=== PATIENT | male | born 1955 | race Caucasian/White ===

== ENCOUNTER 2017-08-02 21:43 | Inpatient (IN) | payer BC ==
[2017-08-02] MEDS ORDERED: LORAZEPAM 2 MG INJ ×2 (21:53→22:00)
[2017-08-02] MEDS: LEVETIRACETAM 1000 MG (PMX) 100 ML IVPB (21:55)
[2017-08-02] MEDS: LORAZEPAM 2 MG INJ IV ×3 (22:11→23:03)
[2017-08-02] MEDS: SOD CHLORIDE 0.9% 1,000 ML IV (22:18)
[2017-08-02 22:22] LABS: ADD MAN DIFF? NO
[2017-08-02 22:24] LABS: BASOPHIL # 0.1 10^3/ul (0.0-0.1); BASOPHILS % 0.7 % (0.0-2.0); EOSINOPHILS # 0.5 10^3/ul (0.0-0.5); EOSINOPHILS % 3.5 % (0.0-7.0); HEMATOCRIT 40.4 % (42.0-52.0); HEMOGLOBIN 13.9 g/dl (14.0-18.0); LYMPHOCYTES # 2.7 10^3/ul (0.8-2.9); LYMPHOCYTES % 17.8 % (15.0-51.0); MEAN CORPUSCULAR HEMOGLOBIN 29.4 pg (29.0-33.0); MEAN CORPUSCULAR HGB CONC 34.4 g/dl (32.0-37.0); MEAN CORPUSCULAR VOLUME 85.4 fl (82.0-101.0); MEAN PLATELET VOLUME 10.5 fl (7.4-10.4); MONOCYTE # 1.3 10^3/ul (0.3-0.9); MONOCYTES % 8.7 % (0.0-11.0); NEUTROPHIL # 10.3 10^3/ul (1.6-7.5); PLATELET COUNT 268 10^3/UL (140-415); RED BLOOD COUNT 4.73 10^6/ul (4.70-6.10); RED CELL DISTRIBUTION WIDTH 15.6 % (11.5-14.5)
[2017-08-02 22:44] LABS: INR 1.06; PARTIAL THROMBOPLASTIN TIME 25.8 Sec (25.0-35.0); PROTIME 13.9 Sec (11.9-14.9); PT RATIO 1.1
[2017-08-02 22:58] LABS: TROPONIN-I 0.013 ng/ml (0.00-0.12)
[2017-08-02 23:05] LABS: ANION GAP 22 (8-16); BLOOD UREA NITROGEN 7 mg/dl (7-20); CARBON DIOXIDE 19 mmol/L (21-31); CHLORIDE 98 mmol/L (97-110); GLUCOSE 138 mg/dl (70-220); SODIUM 135 mmol/L (135-144)
[2017-08-02 23:07] LABS: ETHANOL < 10.0 mg/dl
[2017-08-03 00:24] LABS: AMPHETAMINE/METHAMPHETAMINE NEGATIVE (NEGATIVE); BARBITURATES NEGATIVE (NEGATIVE); BENZODIAZEPINES NEGATIVE (NEGATIVE); CANNABINOIDS NEGATIVE (NEGATIVE); COCAINE NEGATIVE (NEGATIVE); OPIATES NEGATIVE (NEGATIVE)
[2017-08-03 00:25] LABS: ADD UMIC YES; UR ASCORBIC ACID NEGATIVE (NEGATIVE); UR BILIRUBIN (Dip) NEGATIVE (NEGATIVE); UR BLOOD (Dip) 3+ mg/dL (NEGATIVE); UR CLARITY CLEAR (CLEAR); UR COLOR STRAW (YELLOW); UR GLUCOSE (Dip) NEGATIVE (NEGATIVE); UR KETONES (Dip) NEGATIVE (NEGATIVE); UR LEUKOCYTE ESTERASE (Dip) NEGATIVE Leu/ul (NEGATIVE); UR NITRITE (Dip) NEGATIVE (NEGATIVE); UR RBC > 182 /HPF (0-5); UR SPECIFIC GRAVITY (Dip) 1.006 (1.003-1.030); UR TOTAL PROTEIN (Dip) NEGATIVE (NEGATIVE); UR UROBILINOGEN (Dip) NEGATIVE (NEGATIVE); UR WBC 1 /HPF (0-5)
[2017-08-03] MEDS: SODIUM CHLORIDE 0.9% 1L BAG IV* (03:00)
[2017-08-03 03:06] LABS: LACTIC ACID 1.4 mmol/L (0.5-2.0)
[2017-08-03] MEDS ORDERED: ACETAMINOPHEN 325 MG TAB PO (04:30)
[2017-08-03] MEDS ORDERED: LORAZEPAM 2 MG INJ IV (04:30)
[2017-08-03] MEDS ORDERED: ONDANSETRON 4 MG INJ IV (04:30)
[2017-08-03] MEDS: PANTOPRAZOLE (EC) 40 MG TAB PO (05:35)
[2017-08-03] MEDS: CEFEPIME 2GM/50 ML (PMX) 50 ML IVPB (05:35)
[2017-08-03] MEDS: LEVETIRACETAM 500 MG (PMX) 100 ML IVPB ×2 (08:10→20:45)
[2017-08-03] MEDS: CHLORDIAZEPOXIDE 25 MG CAP PO ×4 (09:00→21:17)
[2017-08-03] MEDS: MULTIVITAMINS 10 ML, THIAMINE 100 MG, FOLIC ACID 1 MG in SOD CHLORIDE 0.9% 1,000 ML IVPB (09:19)
[2017-08-03 13:23] LABS: LACTIC ACID 0.8 mmol/L (0.5-2.0)
[2017-08-03] MEDS ORDERED: morphine 2 MG INJ IV (14:30)
[2017-08-03] MEDS: CEFTRIAXONE 1 GM/50 ML (PMX) 50 ML IVPB (14:57)
[2017-08-03] MEDS: PIPER-TAZO 3.375 GM IV (PMX) 100 ML IVPB ×2 (17:17→23:24)
[2017-08-04 06:13] LABS: WHITE BLOOD COUNT 11.2 10^3/ul (4.8-10.8)
[2017-08-04 06:13] LABS: ABNORMAL IP MESSAGE 1; HEMATOCRIT 41.9 % (42.0-52.0); HEMOGLOBIN 14.1 g/dl (14.0-18.0); MEAN CORPUSCULAR HEMOGLOBIN 29.1 pg (29.0-33.0); MEAN CORPUSCULAR HGB CONC 33.7 g/dl (32.0-37.0); MEAN CORPUSCULAR VOLUME 86.6 fl (82.0-101.0); MEAN PLATELET VOLUME 10.8 fl (7.4-10.4); PLATELET COUNT 260 10^3/UL (140-415); POSITIVE DIFF @See below; RED BLOOD COUNT 4.84 10^6/ul (4.70-6.10); RED CELL DISTRIBUTION WIDTH 15.9 % (11.5-14.5)
[2017-08-04] MEDS: PANTOPRAZOLE (EC) 40 MG TAB PO (06:25)
[2017-08-04] MEDS: PIPER-TAZO 3.375 GM IV (PMX) 100 ML IVPB ×3 (06:25→17:58)
[2017-08-04 06:38] LABS: ADD MAN DIFF? YES
[2017-08-04 06:43] LABS: ANION GAP 14 (8-16); BLOOD UREA NITROGEN 6 mg/dl (7-20); CALCIUM 8.9 mg/dl (8.4-10.2); CARBON DIOXIDE 25 mmol/L (21-31); CHLORIDE 106 mmol/L (97-110); CREATININE 0.61 mg/dl (0.61-1.24); GLUCOSE 92 mg/dl (70-220); POTASSIUM 3.5 mmol/L (3.5-5.1); SODIUM 141 mmol/L (135-144)
[2017-08-04 07:15] LABS: ANISOCYTOSIS 1+ (0-0); BAND NEUTROPHILS #M 0.4 10^3/ul (0.0-0.6); BAND NEUTROPHILS % (M) 4 % (0-4); EOSINOPHILS % (M) 32 % (0-7); GIANT THROMBO% (M) 1 % (0-0); LYMPHOCYTES #M 2.2 10^3/ul (0.8-2.9); LYMPHOCYTES % (M) 20 % (15-51); MICROCYTOSIS 1+ (0-0); MONOCYTE #M 0.5 10^3/ul (0.3-0.9); MONOCYTES % (M) 5 % (0-11); PLATELET ESTIMATE NORMAL; POLYCHROMASIA 1+ (0-0); REACTIVE LYMPHOCYTES #M 0.1 10^3/ul (0.0-0.0); REACTIVE LYMPHOCYTES% (M) 1 % (0-0); SEG NEUT #M 4.3 10^3/ul (1.6-7.5); SEGMENTED NEUTROPHILS (M) % 38 % (39-77); SMUDGE%M 5 % (0-0)
[2017-08-04] MEDS: LEVETIRACETAM 500 MG (PMX) 100 ML IVPB ×2 (08:46→20:16)
[2017-08-04] MEDS: MULTIVITAMINS 10 ML, THIAMINE 100 MG, FOLIC ACID 1 MG in SOD CHLORIDE 0.9% 1,000 ML IVPB (08:46)
[2017-08-04] MEDS: CHLORDIAZEPOXIDE 25 MG CAP PO ×3 (08:47→20:16)
[2017-08-04] MEDS ORDERED: HYDROCODONE/APAP (5/325) TAB PO (14:00)
[2017-08-05] MEDS: PIPER-TAZO 3.375 GM IV (PMX) 100 ML IVPB ×5 (00:15→23:23)
[2017-08-05] MEDS: PANTOPRAZOLE (EC) 40 MG TAB PO (05:44)
[2017-08-05] MEDS ORDERED: PANTOPRAZOLE (EC) 40 MG TAB PO (06:00)
[2017-08-05 08:19] LABS: ABNORMAL IP MESSAGE 1; HEMOGLOBIN 13.8 g/dl (14.0-18.0); MEAN CORPUSCULAR HEMOGLOBIN 29.7 pg (29.0-33.0); MEAN CORPUSCULAR HGB CONC 34.5 g/dl (32.0-37.0); MEAN CORPUSCULAR VOLUME 86.2 fl (82.0-101.0); MEAN PLATELET VOLUME 10.9 fl (7.4-10.4); PLATELET COUNT 260 10^3/UL (140-415); POSITIVE DIFF @See below; RED BLOOD COUNT 4.64 10^6/ul (4.70-6.10); RED CELL DISTRIBUTION WIDTH 15.9 % (11.5-14.5)
[2017-08-05 08:19] LABS: WHITE BLOOD COUNT 12.7 10^3/ul (4.8-10.8)
[2017-08-05 08:26] LABS: ADD MAN DIFF? YES
[2017-08-05] MEDS: LEVETIRACETAM 500 MG (PMX) 100 ML IVPB ×2 (08:33→20:09)
[2017-08-05] MEDS: CHLORDIAZEPOXIDE 25 MG CAP PO ×3 (08:33→20:09)
[2017-08-05 08:47] LABS: ANION GAP 15 (8-16); BLOOD UREA NITROGEN 8 mg/dl (7-20); CALCIUM 8.7 mg/dl (8.4-10.2); CARBON DIOXIDE 24 mmol/L (21-31); CHLORIDE 109 mmol/L (97-110); CREATININE 0.67 mg/dl (0.61-1.24); GLUCOSE 108 mg/dl (70-220); POTASSIUM 3.6 mmol/L (3.5-5.1); SODIUM 144 mmol/L (135-144)
[2017-08-05 09:25] LABS: ANISOCYTOSIS 1+ (0-0); BAND NEUTROPHILS #M 0.2 10^3/ul (0.0-0.6); BAND NEUTROPHILS % (M) 2 % (0-4); BASOPHIL #M 0.2 10^3/ul (0.0-0.0); BASOPHILS % (M) 2 % (0-2); EOSINOPHILS % (M) 22 % (0-7); LYMPHOCYTES #M 3.1 10^3/ul (0.8-2.9); LYMPHOCYTES % (M) 25 % (15-51); MICROCYTOSIS 1+ (0-0); MONOCYTE #M 0.7 10^3/ul (0.3-0.9); MONOCYTES % (M) 6 % (0-11); PLATELET ESTIMATE NORMAL; POLYCHROMASIA 3+ (0-0); SEG NEUT #M 5.5 10^3/ul (1.6-7.5); SEGMENTED NEUTROPHILS (M) % 43 % (39-77); SMUDGE%M 6 % (0-0)
[2017-08-05] MEDS: MULTIVITAMINS 10 ML, THIAMINE 100 MG, FOLIC ACID 1 MG in SOD CHLORIDE 0.9% 1,000 ML IVPB (11:34)
[2017-08-06 06:15] LABS: ABNORMAL IP MESSAGE 1; HEMATOCRIT 41.4 % (42.0-52.0); HEMOGLOBIN 13.8 g/dl (14.0-18.0); MEAN CORPUSCULAR HEMOGLOBIN 29.1 pg (29.0-33.0); MEAN CORPUSCULAR HGB CONC 33.3 g/dl (32.0-37.0); MEAN CORPUSCULAR VOLUME 87.2 fl (82.0-101.0); MEAN PLATELET VOLUME 10.7 fl (7.4-10.4); PLATELET COUNT 269 10^3/UL (140-415); POSITIVE DIFF @See below; RED BLOOD COUNT 4.75 10^6/ul (4.70-6.10); RED CELL DISTRIBUTION WIDTH 15.8 % (11.5-14.5)
[2017-08-06 06:15] LABS: WHITE BLOOD COUNT 11.2 10^3/ul (4.8-10.8)
[2017-08-06] MEDS: PANTOPRAZOLE (EC) 40 MG TAB PO (06:15)
[2017-08-06] MEDS: PIPER-TAZO 3.375 GM IV (PMX) 100 ML IVPB ×3 (06:15→17:59)
[2017-08-06 06:30] LABS: ANION GAP 13 (8-16); BLOOD UREA NITROGEN 7 mg/dl (7-20); CARBON DIOXIDE 27 mmol/L (21-31); CHLORIDE 106 mmol/L (97-110); CREATININE 0.61 mg/dl (0.61-1.24); GLUCOSE 111 mg/dl (70-220); POTASSIUM 3.8 mmol/L (3.5-5.1); SODIUM 142 mmol/L (135-144)
[2017-08-06 07:00] LABS: ADD MAN DIFF? YES
[2017-08-06] MEDS: CHLORDIAZEPOXIDE 25 MG CAP PO ×3 (09:22→20:54)
[2017-08-06] MEDS: LEVETIRACETAM 500 MG (PMX) 100 ML IVPB ×2 (09:22→20:54)
[2017-08-06] MEDS: MULTIVITAMINS 10 ML, THIAMINE 100 MG, FOLIC ACID 1 MG in SOD CHLORIDE 0.9% 1,000 ML IVPB (09:22)
[2017-08-06 10:34] LABS: BAND NEUTROPHILS #M 0.1 10^3/ul (0.0-0.6); BAND NEUTROPHILS % (M) 1 % (0-4); BASOPHIL #M 0.2 10^3/ul (0.0-0.0); BASOPHILS % (M) 2 % (0-2); EOSINOPHILS % (M) 32 % (0-7); ERYTHROBLAST% (NRBC) (M) 1 % (0-0); GIANT THROMBO% (M) 1 % (0-0); LYMPHOCYTES % (M) 36 % (15-51); MONOCYTE #M 0.5 10^3/ul (0.3-0.9); MONOCYTES % (M) 5 % (0-11); PLATELET ESTIMATE NORMAL; SEG NEUT #M 2.7 10^3/ul (1.6-7.5); SEGMENTED NEUTROPHILS (M) % 24 % (39-77); SMUDGE%M 26 % (0-0)
[2017-08-07] MEDS: PIPER-TAZO 3.375 GM IV (PMX) 100 ML IVPB ×4 (00:12→18:16)
[2017-08-07] MEDS: PANTOPRAZOLE (EC) 40 MG TAB PO (05:53)
[2017-08-07 06:46] LABS: ABNORMAL IP MESSAGE 1; HEMATOCRIT 42.3 % (42.0-52.0); HEMOGLOBIN 14.1 g/dl (14.0-18.0); MEAN CORPUSCULAR HGB CONC 33.3 g/dl (32.0-37.0); MEAN PLATELET VOLUME 10.7 fl (7.4-10.4); PLATELET COUNT 282 10^3/UL (140-415); POSITIVE DIFF @See below; RED BLOOD COUNT 4.86 10^6/ul (4.70-6.10)
[2017-08-07 06:46] LABS: WHITE BLOOD COUNT 11.2 10^3/ul (4.8-10.8)
[2017-08-07 07:14] LABS: ANION GAP 15 (8-16); BLOOD UREA NITROGEN 6 mg/dl (7-20); CARBON DIOXIDE 26 mmol/L (21-31); CHLORIDE 106 mmol/L (97-110); CREATININE 0.57 mg/dl (0.61-1.24); GLUCOSE 109 mg/dl (70-220); POTASSIUM 3.9 mmol/L (3.5-5.1); SODIUM 143 mmol/L (135-144)
[2017-08-07 07:36] LABS: ADD MAN DIFF? YES
[2017-08-07] MEDS: LEVETIRACETAM 500 MG (PMX) 100 ML IVPB ×2 (08:23→21:24)
[2017-08-07] MEDS: CHLORDIAZEPOXIDE 25 MG CAP PO ×3 (08:23→21:24)
[2017-08-07] MEDS: MULTIVITAMINS 10 ML, THIAMINE 100 MG, FOLIC ACID 1 MG in SOD CHLORIDE 0.9% 1,000 ML IVPB (08:24)
[2017-08-07 11:32] LABS: BASOPHIL #M 0.1 10^3/ul (0.0-0.0); BASOPHILS % (M) 1 % (0-2); EOSINOPHILS % (M) 31 % (0-7); GIANT THROMBO% (M) 2 % (0-0); LYMPHOCYTES #M 1.9 10^3/ul (0.8-2.9); LYMPHOCYTES % (M) 17 % (15-51); MONOCYTE #M 0.5 10^3/ul (0.3-0.9); MONOCYTES % (M) 5 % (0-11); PLATELET ESTIMATE NORMAL; SEGMENTED NEUTROPHILS (M) % 46 % (39-77); SMUDGE%M 9 % (0-0)
[2017-08-08] MEDS: PIPER-TAZO 3.375 GM IV (PMX) 100 ML IVPB ×4 (00:31→19:07)
[2017-08-08] MEDS: PANTOPRAZOLE (EC) 40 MG TAB PO (05:14)
[2017-08-08 08:43] LABS: ABNORMAL IP MESSAGE 1; HEMATOCRIT 43.5 % (42.0-52.0); HEMOGLOBIN 14.2 g/dl (14.0-18.0); MEAN CORPUSCULAR HEMOGLOBIN 28.6 pg (29.0-33.0); MEAN CORPUSCULAR HGB CONC 32.6 g/dl (32.0-37.0); MEAN CORPUSCULAR VOLUME 87.7 fl (82.0-101.0); MEAN PLATELET VOLUME 10.9 fl (7.4-10.4); PLATELET COUNT 275 10^3/UL (140-415); POSITIVE DIFF @See below; RED BLOOD COUNT 4.96 10^6/ul (4.70-6.10); RED CELL DISTRIBUTION WIDTH 15.9 % (11.5-14.5)
[2017-08-08 08:43] LABS: WHITE BLOOD COUNT 11.3 10^3/ul (4.8-10.8)
[2017-08-08 08:47] LABS: ADD MAN DIFF? YES
[2017-08-08 09:02] LABS: ANION GAP 16 (8-16); BLOOD UREA NITROGEN 8 mg/dl (7-20); CALCIUM 9.3 mg/dl (8.4-10.2); CARBON DIOXIDE 27 mmol/L (21-31); CHLORIDE 104 mmol/L (97-110); CREATININE 0.69 mg/dl (0.61-1.24); GLUCOSE 107 mg/dl (70-220); POTASSIUM 3.9 mmol/L (3.5-5.1); SODIUM 143 mmol/L (135-144)
[2017-08-08] MEDS: MULTIVITAMINS 10 ML, THIAMINE 100 MG, FOLIC ACID 1 MG in SOD CHLORIDE 0.9% 1,000 ML IVPB (09:19)
[2017-08-08] MEDS: CHLORDIAZEPOXIDE 25 MG CAP PO ×3 (09:19→20:38)
[2017-08-08 09:44] LABS: BAND NEUTROPHILS #M 0.1 10^3/ul (0.0-0.6); BAND NEUTROPHILS % (M) 1 % (0-4); BASOPHIL #M 0.3 10^3/ul (0.0-0.0); BASOPHILS % (M) 3 % (0-2); EOSINOPHILS % (M) 37 % (0-7); GIANT THROMBO% (M) 1 % (0-0); LYMPHOCYTES % (M) 9 % (15-51); MONOCYTES % (M) 9 % (0-11); MYELOCYTES #M 0.1 10^3/ul (0.0-0.0); MYELOCYTES % (M) 1 % (0-0); PLATELET ESTIMATE NORMAL; POLYCHROMASIA 2+ (0-0); REACTIVE LYMPHOCYTES #M 0.9 10^3/ul (0.0-0.0); REACTIVE LYMPHOCYTES% (M) 8 % (0-0); SEG NEUT #M 3.6 10^3/ul (1.6-7.5); SEGMENTED NEUTROPHILS (M) % 32 % (39-77); SMUDGE%M 22 % (0-0)
[2017-08-08] MEDS: LEVETIRACETAM 500 MG (PMX) 100 ML IVPB (10:08)
[2017-08-08] MEDS: LEVETIRACETAM 500 MG TAB PO (20:38)
[2017-08-09] MEDS: PIPER-TAZO 3.375 GM IV (PMX) 100 ML IVPB ×4 (00:38→17:19)
[2017-08-09] MEDS: PANTOPRAZOLE (EC) 40 MG TAB PO (05:52)
[2017-08-09 06:05] LABS: ADD MAN DIFF? NO
[2017-08-09 06:09] LABS: WHITE BLOOD COUNT 12.4 10^3/ul (4.8-10.8)
[2017-08-09 06:09] LABS: ABNORMAL IP MESSAGE 1; BASOPHIL # 0.1 10^3/ul (0.0-0.1); BASOPHILS % 0.8 % (0.0-2.0); EOSINOPHILS # 3.8 10^3/ul (0.0-0.5); EOSINOPHILS % 30.8 % (0.0-7.0); HEMATOCRIT 41.6 % (42.0-52.0); HEMOGLOBIN 13.9 g/dl (14.0-18.0); LYMPHOCYTES # 2.6 10^3/ul (0.8-2.9); LYMPHOCYTES % 20.5 % (15.0-51.0); MEAN CORPUSCULAR HEMOGLOBIN 29.2 pg (29.0-33.0); MEAN CORPUSCULAR HGB CONC 33.4 g/dl (32.0-37.0); MEAN CORPUSCULAR VOLUME 87.4 fl (82.0-101.0); MEAN PLATELET VOLUME 10.5 fl (7.4-10.4); MONOCYTE # 1.3 10^3/ul (0.3-0.9); MONOCYTES % 10.1 % (0.0-11.0); NEUTROPHIL # 4.7 10^3/ul (1.6-7.5); NEUTROPHILS % 37.6 % (39.0-77.0); PLATELET COUNT 271 10^3/UL (140-415); POSITIVE DIFF @See below; RED BLOOD COUNT 4.76 10^6/ul (4.70-6.10); RED CELL DISTRIBUTION WIDTH 15.9 % (11.5-14.5)
[2017-08-09 06:42] LABS: ANION GAP 12 (8-16); BLOOD UREA NITROGEN 9 mg/dl (7-20); CALCIUM 9.2 mg/dl (8.4-10.2); CARBON DIOXIDE 28 mmol/L (21-31); CHLORIDE 107 mmol/L (97-110); CREATININE 0.61 mg/dl (0.61-1.24); GLUCOSE 104 mg/dl (70-220); POTASSIUM 3.9 mmol/L (3.5-5.1); SODIUM 143 mmol/L (135-144)
[2017-08-09] MEDS: THIAMINE 100 MG TAB PO (08:17)
[2017-08-09] MEDS: MULTIVITAMINS THERAPEUTIC TAB PO (08:17)
[2017-08-09] MEDS: FOLIC ACID 1 MG TAB PO (08:17)
[2017-08-09] MEDS: LEVETIRACETAM 500 MG TAB PO ×2 (08:18→20:44)
[2017-08-09] MEDS: CHLORDIAZEPOXIDE 25 MG CAP PO ×2 (08:34→20:45)
[2017-08-09] MEDS ORDERED: MULTIVIT/CA CARB/B CMPLX/FA TAB PO (09:00)
[2017-08-09] MEDS ORDERED: LEVETIRACETAM 500 MG TAB PO (09:00)
[2017-08-10] MEDS: PIPER-TAZO 3.375 GM IV (PMX) 100 ML IVPB ×4 (00:17→18:21)
[2017-08-10] MEDS: PANTOPRAZOLE (EC) 40 MG TAB PO (05:56)
[2017-08-10 05:58] LABS: ADD MAN DIFF? NO
[2017-08-10 06:06] LABS: ABNORMAL IP MESSAGE 1; BASOPHIL # 0.1 10^3/ul (0.0-0.1); BASOPHILS % 0.8 % (0.0-2.0); EOSINOPHILS # 3.7 10^3/ul (0.0-0.5); HEMATOCRIT 41.2 % (42.0-52.0); HEMOGLOBIN 13.6 g/dl (14.0-18.0); LYMPHOCYTES # 2.4 10^3/ul (0.8-2.9); LYMPHOCYTES % 15.9 % (15.0-51.0); MEAN CORPUSCULAR HEMOGLOBIN 28.8 pg (29.0-33.0); MEAN CORPUSCULAR VOLUME 87.1 fl (82.0-101.0); MEAN PLATELET VOLUME 10.4 fl (7.4-10.4); MONOCYTE # 1.6 10^3/ul (0.3-0.9); MONOCYTES % 10.7 % (0.0-11.0); NEUTROPHIL # 7.1 10^3/ul (1.6-7.5); NEUTROPHILS % 47.3 % (39.0-77.0); PLATELET COUNT 265 10^3/UL (140-415); POSITIVE DIFF @See below; RED BLOOD COUNT 4.73 10^6/ul (4.70-6.10); RED CELL DISTRIBUTION WIDTH 15.5 % (11.5-14.5)
[2017-08-10 07:15] LABS: ANION GAP 11 (8-16); BLOOD UREA NITROGEN 10 mg/dl (7-20); CALCIUM 9.3 mg/dl (8.4-10.2); CARBON DIOXIDE 28 mmol/L (21-31); CHLORIDE 105 mmol/L (97-110); CREATININE 0.69 mg/dl (0.61-1.24); GLUCOSE 108 mg/dl (70-220); SODIUM 140 mmol/L (135-144)
[2017-08-10] MEDS: THIAMINE 100 MG TAB PO (08:35)
[2017-08-10] MEDS: FOLIC ACID 1 MG TAB PO (08:36)
[2017-08-10] MEDS: CHLORDIAZEPOXIDE 25 MG CAP PO ×2 (08:36→20:56)
[2017-08-10] MEDS: LEVETIRACETAM 500 MG TAB PO ×2 (08:36→20:56)
[2017-08-10] MEDS: MULTIVITAMINS THERAPEUTIC TAB PO (08:36)
[2017-08-11] MEDS: PIPER-TAZO 3.375 GM IV (PMX) 100 ML IVPB ×3 (01:26→13:31)
[2017-08-11] MEDS: PANTOPRAZOLE (EC) 40 MG TAB PO (05:27)
[2017-08-11 05:39] LABS: ADD MAN DIFF? NO
[2017-08-11 05:43] LABS: WHITE BLOOD COUNT 13.1 10^3/ul (4.8-10.8)
[2017-08-11 05:43] LABS: ABNORMAL IP MESSAGE 1; BASOPHIL # 0.1 10^3/ul (0.0-0.1); BASOPHILS % 0.8 % (0.0-2.0); EOSINOPHILS # 3.3 10^3/ul (0.0-0.5); EOSINOPHILS % 25.2 % (0.0-7.0); HEMATOCRIT 41.7 % (42.0-52.0); LYMPHOCYTES # 2.2 10^3/ul (0.8-2.9); MEAN CORPUSCULAR HEMOGLOBIN 29.4 pg (29.0-33.0); MEAN CORPUSCULAR HGB CONC 33.6 g/dl (32.0-37.0); MEAN CORPUSCULAR VOLUME 87.4 fl (82.0-101.0); MEAN PLATELET VOLUME 10.7 fl (7.4-10.4); MONOCYTE # 1.6 10^3/ul (0.3-0.9); MONOCYTES % 12.2 % (0.0-11.0); NEUTROPHIL # 5.9 10^3/ul (1.6-7.5); NEUTROPHILS % 44.5 % (39.0-77.0); PLATELET COUNT 277 10^3/UL (140-415); POSITIVE DIFF @See below; RED BLOOD COUNT 4.77 10^6/ul (4.70-6.10); RED CELL DISTRIBUTION WIDTH 15.1 % (11.5-14.5)
[2017-08-11 06:01] LABS: ANION GAP 14 (8-16); BLOOD UREA NITROGEN 8 mg/dl (7-20); CALCIUM 9.4 mg/dl (8.4-10.2); CARBON DIOXIDE 27 mmol/L (21-31); CHLORIDE 103 mmol/L (97-110); CREATININE 0.65 mg/dl (0.61-1.24); GLUCOSE 131 mg/dl (70-220); POTASSIUM 3.9 mmol/L (3.5-5.1); SODIUM 140 mmol/L (135-144)
[2017-08-11] MEDS: MULTIVITAMINS THERAPEUTIC TAB PO (09:05)
[2017-08-11] MEDS: LEVETIRACETAM 500 MG TAB PO ×2 (09:05→20:48)
[2017-08-11] MEDS: THIAMINE 100 MG TAB PO (09:05)
[2017-08-11] MEDS: FOLIC ACID 1 MG TAB PO (09:05)
[2017-08-11] MEDS: CHLORDIAZEPOXIDE 25 MG CAP PO ×2 (09:07→20:48)
[2017-08-11] MEDS ORDERED: VANCOMYCIN IV PER PHARMACY XX (19:00)
[2017-08-11] MEDS: VANCOMYCIN 1.25 GM in SOD CHLORIDE 0.9% 250 ML IVPB (20:48)
[2017-08-11] MEDS: DOXYCYCLINE 100 MG TAB PO (20:48)
[2017-08-12 06:14] LABS: ADD MAN DIFF? NO
[2017-08-12] MEDS: PANTOPRAZOLE (EC) 40 MG TAB PO (06:16)
[2017-08-12 06:24] LABS: ABNORMAL IP MESSAGE 1; BASOPHIL # 0.1 10^3/ul (0.0-0.1); BASOPHILS % 0.8 % (0.0-2.0); EOSINOPHILS # 3.4 10^3/ul (0.0-0.5); EOSINOPHILS % 24.4 % (0.0-7.0); HEMATOCRIT 41.3 % (42.0-52.0); HEMOGLOBIN 13.5 g/dl (14.0-18.0); LYMPHOCYTES # 2.4 10^3/ul (0.8-2.9); LYMPHOCYTES % 17.3 % (15.0-51.0); MEAN CORPUSCULAR HEMOGLOBIN 28.8 pg (29.0-33.0); MEAN CORPUSCULAR HGB CONC 32.7 g/dl (32.0-37.0); MEAN CORPUSCULAR VOLUME 88.1 fl (82.0-101.0); MEAN PLATELET VOLUME 10.7 fl (7.4-10.4); MONOCYTES % 14.1 % (0.0-11.0); PLATELET COUNT 266 10^3/UL (140-415); POSITIVE DIFF @See below; RED BLOOD COUNT 4.69 10^6/ul (4.70-6.10); RED CELL DISTRIBUTION WIDTH 15.4 % (11.5-14.5)
[2017-08-12 06:24] LABS: WHITE BLOOD COUNT 13.9 10^3/ul (4.8-10.8)
[2017-08-12 06:45] LABS: ANION GAP 10 (8-16); BLOOD UREA NITROGEN 9 mg/dl (7-20); CALCIUM 9.5 mg/dl (8.4-10.2); CARBON DIOXIDE 31 mmol/L (21-31); CHLORIDE 105 mmol/L (97-110); CREATININE 0.57 mg/dl (0.61-1.24); GLUCOSE 105 mg/dl (70-220); POTASSIUM 3.9 mmol/L (3.5-5.1); SODIUM 142 mmol/L (135-144)
[2017-08-12] MEDS: LEVETIRACETAM 500 MG TAB PO ×2 (09:12→20:48)
[2017-08-12] MEDS: MULTIVITAMINS THERAPEUTIC TAB PO (09:12)
[2017-08-12] MEDS: VANCOMYCIN 1 GM 250 ML IVPB ×2 (09:12→20:49)
[2017-08-12] MEDS: THIAMINE 100 MG TAB PO (09:12)
[2017-08-12] MEDS: DOXYCYCLINE 100 MG TAB PO (09:12)
[2017-08-12] MEDS: FOLIC ACID 1 MG TAB PO (09:12)
[2017-08-12] MEDS: CHLORDIAZEPOXIDE 25 MG CAP PO ×2 (09:19→20:48)
[2017-08-12] MEDS: CEFTRIAXONE 1 GM/50 ML (PMX) 50 ML IVPB (23:13)
[2017-08-13] MEDS: PANTOPRAZOLE (EC) 40 MG TAB PO (05:40)
[2017-08-13 08:32] LABS: ADD MAN DIFF? NO
[2017-08-13 08:36] LABS: WHITE BLOOD COUNT 13.3 10^3/ul (4.8-10.8)
[2017-08-13 08:36] LABS: ABNORMAL IP MESSAGE 1; BASOPHIL # 0.1 10^3/ul (0.0-0.1); BASOPHILS % 0.6 % (0.0-2.0); EOSINOPHILS # 3.4 10^3/ul (0.0-0.5); EOSINOPHILS % 25.8 % (0.0-7.0); HEMATOCRIT 43.5 % (42.0-52.0); HEMOGLOBIN 14.5 g/dl (14.0-18.0); LYMPHOCYTES % 22.2 % (15.0-51.0); MEAN CORPUSCULAR HEMOGLOBIN 28.9 pg (29.0-33.0); MEAN CORPUSCULAR HGB CONC 33.3 g/dl (32.0-37.0); MEAN CORPUSCULAR VOLUME 86.7 fl (82.0-101.0); MEAN PLATELET VOLUME 10.7 fl (7.4-10.4); MONOCYTE # 1.6 10^3/ul (0.3-0.9); MONOCYTES % 12.3 % (0.0-11.0); NEUTROPHIL # 5.2 10^3/ul (1.6-7.5); NEUTROPHILS % 38.7 % (39.0-77.0); PLATELET COUNT 286 10^3/UL (140-415); POSITIVE DIFF @See below; RED BLOOD COUNT 5.02 10^6/ul (4.70-6.10); RED CELL DISTRIBUTION WIDTH 14.8 % (11.5-14.5)
[2017-08-13] MEDS: THIAMINE 100 MG TAB PO (08:37)
[2017-08-13] MEDS: LEVETIRACETAM 500 MG TAB PO ×2 (08:37→20:59)
[2017-08-13] MEDS: DOXYCYCLINE 100 MG TAB PO (08:37)
[2017-08-13] MEDS: CHLORDIAZEPOXIDE 25 MG CAP PO ×2 (08:37→20:59)
[2017-08-13] MEDS: MULTIVITAMINS THERAPEUTIC TAB PO (08:38)
[2017-08-13] MEDS: FOLIC ACID 1 MG TAB PO (08:38)
[2017-08-13 08:57] LABS: ANION GAP 13 (8-16); BLOOD UREA NITROGEN 12 mg/dl (7-20); CALCIUM 9.9 mg/dl (8.4-10.2); CARBON DIOXIDE 31 mmol/L (21-31); CHLORIDE 100 mmol/L (97-110); CREATININE 0.69 mg/dl (0.61-1.24); GLUCOSE 95 mg/dl (70-220); POTASSIUM 3.9 mmol/L (3.5-5.1); SODIUM 140 mmol/L (135-144)
[2017-08-13 09:15] LABS: VANCOMYCIN,TROUGH 5.8 ug/ml (10.0-20.0)
[2017-08-13] MEDS: VANCOMYCIN 1 GM 250 ML IVPB ×2 (09:29→18:11)
[2017-08-13] MEDS: CEFTRIAXONE 1 GM/50 ML (PMX) 50 ML IVPB (20:59)
[2017-08-14] MEDS: PANTOPRAZOLE (EC) 40 MG TAB PO (05:26)
[2017-08-14 06:25] LABS: ADD MAN DIFF? NO
[2017-08-14 06:34] LABS: ABNORMAL IP MESSAGE 1; BASOPHIL # 0.1 10^3/ul (0.0-0.1); BASOPHILS % 0.8 % (0.0-2.0); EOSINOPHILS # 3.5 10^3/ul (0.0-0.5); EOSINOPHILS % 26.9 % (0.0-7.0); HEMATOCRIT 40.3 % (42.0-52.0); HEMOGLOBIN 13.4 g/dl (14.0-18.0); LYMPHOCYTES # 2.8 10^3/ul (0.8-2.9); LYMPHOCYTES % 21.3 % (15.0-51.0); MEAN CORPUSCULAR HEMOGLOBIN 28.5 pg (29.0-33.0); MEAN CORPUSCULAR HGB CONC 33.3 g/dl (32.0-37.0); MEAN CORPUSCULAR VOLUME 85.7 fl (82.0-101.0); MEAN PLATELET VOLUME 10.9 fl (7.4-10.4); MONOCYTE # 1.6 10^3/ul (0.3-0.9); NEUTROPHILS % 38.7 % (39.0-77.0); PLATELET COUNT 277 10^3/UL (140-415); POSITIVE DIFF @See below
[2017-08-14 07:02] LABS: ANION GAP 16 (8-16); BLOOD UREA NITROGEN 11 mg/dl (7-20); CALCIUM 9.4 mg/dl (8.4-10.2); CARBON DIOXIDE 28 mmol/L (21-31); CHLORIDE 100 mmol/L (97-110); CREATININE 0.62 mg/dl (0.61-1.24); GLUCOSE 100 mg/dl (70-220); POTASSIUM 3.9 mmol/L (3.5-5.1); SODIUM 140 mmol/L (135-144)
[2017-08-14] MEDS: FOLIC ACID 1 MG TAB PO (09:27)
[2017-08-14] MEDS: LEVETIRACETAM 500 MG TAB PO ×2 (09:27→20:04)
[2017-08-14] MEDS: MULTIVITAMINS THERAPEUTIC TAB PO (09:28)
[2017-08-14] MEDS: DOXYCYCLINE 100 MG TAB PO (09:28)
[2017-08-14] MEDS: CHLORDIAZEPOXIDE 25 MG CAP PO ×2 (09:28→20:04)
[2017-08-14] MEDS: THIAMINE 100 MG TAB PO (09:28)
[2017-08-14] MEDS: CEFTRIAXONE 1 GM/50 ML (PMX) 50 ML IVPB (20:04)
[2017-08-14] MEDS ORDERED: GUAIFENESIN/DM 5ML CUP PO (22:30)
[2017-08-15] MEDS: PANTOPRAZOLE (EC) 40 MG TAB PO (06:00)
[2017-08-15 06:10] LABS: ADD MAN DIFF? NO
[2017-08-15 06:14] LABS: ABNORMAL IP MESSAGE 1; BASOPHIL # 0.1 10^3/ul (0.0-0.1); EOSINOPHILS # 3.4 10^3/ul (0.0-0.5); EOSINOPHILS % 28.3 % (0.0-7.0); HEMATOCRIT 42.6 % (42.0-52.0); HEMOGLOBIN 14.4 g/dl (14.0-18.0); LYMPHOCYTES # 2.7 10^3/ul (0.8-2.9); LYMPHOCYTES % 22.2 % (15.0-51.0); MEAN CORPUSCULAR HEMOGLOBIN 29.3 pg (29.0-33.0); MEAN CORPUSCULAR HGB CONC 33.8 g/dl (32.0-37.0); MEAN CORPUSCULAR VOLUME 86.8 fl (82.0-101.0); MEAN PLATELET VOLUME 10.5 fl (7.4-10.4); MONOCYTE # 1.2 10^3/ul (0.3-0.9); MONOCYTES % 10.1 % (0.0-11.0); NEUTROPHIL # 4.6 10^3/ul (1.6-7.5); NEUTROPHILS % 38.1 % (39.0-77.0); PLATELET COUNT 291 10^3/UL (140-415); POSITIVE DIFF @See below; RED BLOOD COUNT 4.91 10^6/ul (4.70-6.10); RED CELL DISTRIBUTION WIDTH 14.6 % (11.5-14.5)
[2017-08-15 06:38] LABS: ANION GAP 13 (8-16); BLOOD UREA NITROGEN 11 mg/dl (7-20); CALCIUM 9.8 mg/dl (8.4-10.2); CARBON DIOXIDE 30 mmol/L (21-31); CHLORIDE 104 mmol/L (97-110); CREATININE 0.65 mg/dl (0.61-1.24); GLUCOSE 115 mg/dl (70-220); SODIUM 143 mmol/L (135-144)
[2017-08-15] MEDS: THIAMINE 100 MG TAB PO (09:48)
[2017-08-15] MEDS: MULTIVITAMINS THERAPEUTIC TAB PO (09:48)
[2017-08-15] MEDS: LEVETIRACETAM 500 MG TAB PO ×2 (09:48→20:43)
[2017-08-15] MEDS: FOLIC ACID 1 MG TAB PO (09:48)
[2017-08-15] MEDS: DOXYCYCLINE 100 MG TAB PO (09:48)
[2017-08-15] MEDS: CHLORDIAZEPOXIDE 25 MG CAP PO ×2 (10:01→20:43)
[2017-08-15] MEDS: CEFTRIAXONE 1 GM/50 ML (PMX) 50 ML IVPB (20:43)
[2017-08-16] MEDS: PANTOPRAZOLE (EC) 40 MG TAB PO (06:08)
[2017-08-16 06:14] LABS: ADD MAN DIFF? NO
[2017-08-16 06:18] LABS: ABNORMAL IP MESSAGE 1; BASOPHIL # 0.2 10^3/ul (0.0-0.1); BASOPHILS % 1.2 % (0.0-2.0); EOSINOPHILS # 3.6 10^3/ul (0.0-0.5); EOSINOPHILS % 27.3 % (0.0-7.0); HEMATOCRIT 42.9 % (42.0-52.0); HEMOGLOBIN 14.4 g/dl (14.0-18.0); LYMPHOCYTES # 3.1 10^3/ul (0.8-2.9); LYMPHOCYTES % 23.3 % (15.0-51.0); MEAN CORPUSCULAR HEMOGLOBIN 28.7 pg (29.0-33.0); MEAN CORPUSCULAR HGB CONC 33.6 g/dl (32.0-37.0); MEAN CORPUSCULAR VOLUME 85.5 fl (82.0-101.0); MEAN PLATELET VOLUME 10.8 fl (7.4-10.4); MONOCYTE # 1.3 10^3/ul (0.3-0.9); MONOCYTES % 9.8 % (0.0-11.0); NEUTROPHIL # 5.1 10^3/ul (1.6-7.5); NEUTROPHILS % 38.1 % (39.0-77.0); PLATELET COUNT 293 10^3/UL (140-415); POSITIVE DIFF @See below; RED BLOOD COUNT 5.02 10^6/ul (4.70-6.10); RED CELL DISTRIBUTION WIDTH 14.8 % (11.5-14.5)
[2017-08-16 06:18] LABS: WHITE BLOOD COUNT 13.3 10^3/ul (4.8-10.8)
[2017-08-16 06:39] LABS: ANION GAP 16 (8-16); BLOOD UREA NITROGEN 15 mg/dl (7-20); CALCIUM 9.8 mg/dl (8.4-10.2); CARBON DIOXIDE 27 mmol/L (21-31); CHLORIDE 102 mmol/L (97-110); CREATININE 0.64 mg/dl (0.61-1.24); GLUCOSE 111 mg/dl (70-220); POTASSIUM 3.9 mmol/L (3.5-5.1); SODIUM 141 mmol/L (135-144)
[2017-08-16] MEDS: THIAMINE 100 MG TAB PO (08:11)
[2017-08-16] MEDS: DOXYCYCLINE 100 MG TAB PO (08:11)
[2017-08-16] MEDS: FOLIC ACID 1 MG TAB PO (08:11)
[2017-08-16] MEDS: CHLORDIAZEPOXIDE 25 MG CAP PO ×2 (08:11→20:15)
[2017-08-16] MEDS: LEVETIRACETAM 500 MG TAB PO ×2 (08:11→20:15)
[2017-08-16] MEDS: MULTIVITAMINS THERAPEUTIC TAB PO (08:11)
[2017-08-16] MEDS: CEFTRIAXONE 1 GM/50 ML (PMX) 50 ML IVPB (20:30)
[2017-08-17] MEDS: PANTOPRAZOLE (EC) 40 MG TAB PO (05:08)
[2017-08-17] MEDS: MULTIVITAMINS THERAPEUTIC TAB PO (09:31)
[2017-08-17] MEDS: FOLIC ACID 1 MG TAB PO (09:31)
[2017-08-17] MEDS: THIAMINE 100 MG TAB PO (09:31)
[2017-08-17] MEDS: LEVETIRACETAM 500 MG TAB PO ×2 (09:31→20:35)
[2017-08-17] MEDS: CHLORDIAZEPOXIDE 25 MG CAP PO ×2 (09:31→20:35)
[2017-08-17 10:49] LABS: ADD MAN DIFF? NO
[2017-08-17 10:51] LABS: WHITE BLOOD COUNT 13.2 10^3/ul (4.8-10.8)
[2017-08-17 10:51] LABS: ABNORMAL IP MESSAGE 1; BASOPHIL # 0.1 10^3/ul (0.0-0.1); BASOPHILS % 1.1 % (0.0-2.0); EOSINOPHILS # 3.3 10^3/ul (0.0-0.5); HEMOGLOBIN 15.5 g/dl (14.0-18.0); LYMPHOCYTES # 2.8 10^3/ul (0.8-2.9); LYMPHOCYTES % 21.2 % (15.0-51.0); MEAN CORPUSCULAR HEMOGLOBIN 28.5 pg (29.0-33.0); MEAN CORPUSCULAR VOLUME 86.4 fl (82.0-101.0); MEAN PLATELET VOLUME 10.6 fl (7.4-10.4); MONOCYTE # 1.2 10^3/ul (0.3-0.9); MONOCYTES % 8.9 % (0.0-11.0); NEUTROPHIL # 5.8 10^3/ul (1.6-7.5); NEUTROPHILS % 43.8 % (39.0-77.0); PLATELET COUNT 320 10^3/UL (140-415); POSITIVE DIFF @See below; RED BLOOD COUNT 5.44 10^6/ul (4.70-6.10); RED CELL DISTRIBUTION WIDTH 14.5 % (11.5-14.5)
[2017-08-17 10:53] LABS: EOSINOPHILS % 24.6 % (0.0-7.0)
[2017-08-17 11:17] LABS: ANION GAP 12 (8-16); BLOOD UREA NITROGEN 16 mg/dl (7-20); CALCIUM 10.1 mg/dl (8.4-10.2); CARBON DIOXIDE 31 mmol/L (21-31); CHLORIDE 102 mmol/L (97-110); CREATININE 0.69 mg/dl (0.61-1.24); GLUCOSE 90 mg/dl (70-220); POTASSIUM 4.1 mmol/L (3.5-5.1); SODIUM 141 mmol/L (135-144)
[2017-08-17] MEDS: CEFTRIAXONE 1 GM/50 ML (PMX) 50 ML IVPB (20:35)
[2017-08-18] MEDS: PANTOPRAZOLE (EC) 40 MG TAB PO (05:49)
[2017-08-18 06:30] LABS: ADD MAN DIFF? NO
[2017-08-18 06:38] LABS: WHITE BLOOD COUNT 12.8 10^3/ul (4.8-10.8)
[2017-08-18 06:38] LABS: ABNORMAL IP MESSAGE 1; BASOPHIL # 0.2 10^3/ul (0.0-0.1); BASOPHILS % 1.2 % (0.0-2.0); EOSINOPHILS # 3.4 10^3/ul (0.0-0.5); HEMATOCRIT 43.4 % (42.0-52.0); HEMOGLOBIN 14.2 g/dl (14.0-18.0); LYMPHOCYTES # 2.9 10^3/ul (0.8-2.9); LYMPHOCYTES % 22.8 % (15.0-51.0); MEAN CORPUSCULAR HEMOGLOBIN 28.3 pg (29.0-33.0); MEAN CORPUSCULAR HGB CONC 32.7 g/dl (32.0-37.0); MEAN CORPUSCULAR VOLUME 86.5 fl (82.0-101.0); MEAN PLATELET VOLUME 10.5 fl (7.4-10.4); MONOCYTE # 1.2 10^3/ul (0.3-0.9); MONOCYTES % 9.6 % (0.0-11.0); NEUTROPHIL # 5.1 10^3/ul (1.6-7.5); NEUTROPHILS % 39.5 % (39.0-77.0); PLATELET COUNT 324 10^3/UL (140-415); POSITIVE DIFF @See below; RED BLOOD COUNT 5.02 10^6/ul (4.70-6.10); RED CELL DISTRIBUTION WIDTH 14.4 % (11.5-14.5)
[2017-08-18 06:48] LABS: EOSINOPHILS % 26.6 % (0.0-7.0)
[2017-08-18 06:57] LABS: ANION GAP 15 (8-16); BLOOD UREA NITROGEN 15 mg/dl (7-20); CALCIUM 9.7 mg/dl (8.4-10.2); CARBON DIOXIDE 28 mmol/L (21-31); CHLORIDE 102 mmol/L (97-110); CREATININE 0.66 mg/dl (0.61-1.24); GLUCOSE 106 mg/dl (70-220); POTASSIUM 4.1 mmol/L (3.5-5.1); SODIUM 141 mmol/L (135-144)
[2017-08-18] MEDS: FOLIC ACID 1 MG TAB PO (08:51)
[2017-08-18] MEDS: LEVETIRACETAM 500 MG TAB PO (08:51)
[2017-08-18] MEDS: THIAMINE 100 MG TAB PO (08:51)
[2017-08-18] MEDS: CHLORDIAZEPOXIDE 25 MG CAP PO (08:51)
[2017-08-18] MEDS: MULTIVITAMINS THERAPEUTIC TAB PO (08:51)
[2017-08-18] MEDS ORDERED: CLINDAMYCIN 150 MG CAP PO (16:00)
== END 2017-08-18 18:15 | DRG 871 ==
LOC: MS4 08-03 00:08 → MS2 08-09 04:56 → E/R 21:43
DX: A41.9 Sepsis, unspecified organism (principal); J69.0 Pneumonitis due to inhalation of food and vomit; I42.9 Cardiomyopathy, unspecified; E11.9 Type 2 diabetes mellitus without complications; F10.229 Alcohol dependence with intoxication, unspecified; G31.2 Degeneration of nervous system due to alcohol; G40.909 Epilepsy, unspecified, not intractable, without status epilepticus; Y90.0 Blood alcohol level of less than 20 mg/100 ml; Z59.0 Homelessness; Z87.891 Personal history of nicotine dependence
CPT/HCPCS: 36415; 70450; 71045; 80048; 80202; 80306; 80307; 81001; 82962; 83605; 84484; 85025; 85610; 85730; 87040; 87070; 87086; 93005; 93306; 96374; 96375; 96376; 97116; 97161; 97530; 99291-25

== ENCOUNTER 2017-09-09 12:52 | Emergency (ER) | payer BC ==
[2017-09-09] MEDS: SOD CHLORIDE 0.9% 1,000 ML IV (13:20)
[2017-09-09] MEDS: LORAZEPAM 2 MG INJ IV (13:20)
[2017-09-09 13:21] LABS: ADD MAN DIFF? NO
[2017-09-09 13:22] LABS: WHITE BLOOD COUNT 11.7 10^3/ul (4.8-10.8)
[2017-09-09 13:22] LABS: ABNORMAL IP MESSAGE 1; BASOPHIL # 0.1 10^3/ul (0.0-0.1); BASOPHILS % 0.9 % (0.0-2.0); EOSINOPHILS % 17.3 % (0.0-7.0); HEMOGLOBIN 13.8 g/dl (14.0-18.0); LYMPHOCYTES # 2.4 10^3/ul (0.8-2.9); LYMPHOCYTES % 20.7 % (15.0-51.0); MEAN CORPUSCULAR HGB CONC 32.9 g/dl (32.0-37.0); MEAN CORPUSCULAR VOLUME 88.2 fl (82.0-101.0); MEAN PLATELET VOLUME 10.7 fl (7.4-10.4); MONOCYTE # 1.1 10^3/ul (0.3-0.9); MONOCYTES % 9.6 % (0.0-11.0); NEUTROPHILS % 51.2 % (39.0-77.0); PLATELET COUNT 269 10^3/UL (140-415); POSITIVE DIFF @See below; RED BLOOD COUNT 4.76 10^6/ul (4.70-6.10)
[2017-09-09 13:41] LABS: ALANINE AMINOTRANSFERASE 32 IU/L (13-69); ALBUMIN 4.6 g/dl (3.3-4.9); ALBUMIN/GLOBULIN RATIO 1.27; ALKALINE PHOSPHATASE 94 IU/L (42-121); ANION GAP 18 (8-16); ASPARTATE AMINO TRANSFERASE 29 IU/L (15-46); BILIRUBIN,INDIRECT 0.8 mg/dl (0-1.1); BILIRUBIN,TOTAL 0.8 mg/dl (0.2-1.3); BLOOD UREA NITROGEN 6 mg/dl (7-20); CALCIUM 9.4 mg/dl (8.4-10.2); CARBON DIOXIDE 28 mmol/L (21-31); CHLORIDE 96 mmol/L (97-110); CREATININE 0.55 mg/dl (0.61-1.24); GLUCOSE 110 mg/dl (70-220); LIPASE 397 U/L (23-300); POTASSIUM 3.9 mmol/L (3.5-5.1); SODIUM 138 mmol/L (135-144); TOTAL PROTEIN 8.2 g/dl (6.1-8.1)
[2017-09-09 13:42] LABS: ETHANOL < 10.0 mg/dl
[2017-09-09] MEDS: LEVETIRACETAM 500 MG TAB PO (13:53)
[2017-09-09 14:03] LABS: TROPONIN-I < 0.012 ng/ml (0.000-0.120)
== END 2017-09-09 15:45 | disposition home or self-care (01) ==
LOC: E/R 12:52
DX: F10.10 Alcohol abuse, uncomplicated (principal); R56.9 Unspecified convulsions
CPT/HCPCS: 36415; 80053; 80307; 82962; 83690; 84484; 85025; 96374; 99284-25

== ENCOUNTER 2017-09-23 17:35 | Emergency (ER) | payer BC ==
[2017-09-23] MEDS: ACETAMINOPHEN 325 MG TAB PO (19:09)
[2017-09-23] MEDS: KETOROLAC 15 MG INJ IM (19:09)
[2017-09-23 22:22] LABS: URINE BLOOD (Dip) POC Negative (NEGATIVE); URINE GLUCOSE (Dip) POC Negative (NEGATIVE); URINE KETONES (Dip) POC Trace (NEGATIVE); URINE LEUKOCYTE EST (Dip) POC Negative (NEGATIVE); URINE NITRITE (Dip) POC Negative (NEGATIVE); URINE TOTAL PROTEIN POC Negative (NEGATIVE)
== END 2017-09-23 23:00 | disposition home or self-care (01) ==
LOC: FTE 17:35
DX: M54.5 Low back pain (principal); E11.9 Type 2 diabetes mellitus without complications; F17.210 Nicotine dependence, cigarettes, uncomplicated
CPT/HCPCS: 72100; 81003; 96372; 99284-25

== ENCOUNTER 2018-10-17 15:24 | Emergency (ER) | payer BC ==
[2018-10-17 15:51] LABS: WHITE BLOOD COUNT 14.1 10^3/ul (4.8-10.8)
[2018-10-17 15:51] LABS: ABNORMAL IP MESSAGE 1; HEMATOCRIT 40.2 % (42.0-52.0); HEMOGLOBIN 13.2 g/dl (14.0-18.0); MEAN CORPUSCULAR HEMOGLOBIN 28.2 pg (29.0-33.0); MEAN CORPUSCULAR HGB CONC 32.8 g/dl (32.0-37.0); MEAN CORPUSCULAR VOLUME 85.9 fl (82.0-101.0); MEAN PLATELET VOLUME 9.9 fl (7.4-10.4); PLATELET COUNT 266 10^3/UL (140-415); POSITIVE DIFF @See below; RED BLOOD COUNT 4.68 10^6/ul (4.70-6.10); RED CELL DISTRIBUTION WIDTH 15.1 % (11.5-14.5)
[2018-10-17 15:52] LABS: ADD MAN DIFF? YES
[2018-10-17 16:11] LABS: ALANINE AMINOTRANSFERASE 20 IU/L (13-69); ALBUMIN 4.3 g/dl (3.3-4.9); ALBUMIN/GLOBULIN RATIO 1.26; ALKALINE PHOSPHATASE 99 IU/L (42-121); ANION GAP 17 (5-13); ASPARTATE AMINO TRANSFERASE 38 IU/L (15-46); BILIRUBIN,INDIRECT 0.6 mg/dl (0-1.1); BILIRUBIN,TOTAL 0.6 mg/dl (0.2-1.3); BLOOD UREA NITROGEN 7 mg/dl (7-20); CARBON DIOXIDE 19 mmol/L (21-31); CHLORIDE 102 mmol/L (97-110); CREATININE 0.58 mg/dl (0.61-1.24); Estimated GFR > 60 mL/min (>60); GLUCOSE 94 mg/dl (70-220); INR 1.06; POTASSIUM 3.7 mmol/L (3.5-5.1); PROTIME 13.9 Sec (11.9-14.9); PT RATIO 1.1; SODIUM 138 mmol/L (135-144); TOTAL PROTEIN 7.7 g/dl (6.1-8.1)
[2018-10-17 16:22] LABS: TROPONIN-I < 0.012 ng/ml (0.000-0.120)
[2018-10-17] MEDS: SODIUM CHLORIDE 0.9% 1L BAG IV* (16:30)
[2018-10-17] MEDS: LEVETIRACETAM 1000 MG (PMX) 100 ML IVPB (16:31)
[2018-10-17 16:43] LABS: BURR CELLS 1+ (0-0); EOSINOPHILS % (M) 23 % (0-7); GIANT THROMBO% (M) 1 % (0-0); LYMPHOCYTES #M 3.2 10^3/ul (0.8-2.9); LYMPHOCYTES % (M) 23 % (15-51); MONOCYTE #M 1.8 10^3/ul (0.3-0.9); MONOCYTES % (M) 13 % (0-11); PLATELET ESTIMATE NORMAL; POIKILOCYTOSIS 1+ (0-0); SEGMENTED NEUTROPHILS (M) % 41 % (39-77); SMUDGE%M 3 % (0-0)
[2018-10-17 17:42] LABS: URINE BLOOD (Dip) POC Negative (NEGATIVE); URINE GLUCOSE (Dip) POC Negative (NEGATIVE); URINE KETONES (Dip) POC Negative (NEGATIVE); URINE LEUKOCYTE EST (Dip) POC Trace (NEGATIVE); URINE NITRITE (Dip) POC Negative (NEGATIVE); URINE TOTAL PROTEIN POC Trace (NEGATIVE)
[2018-10-17 19:04] LABS: ANION GAP 7 (5-13); BLOOD UREA NITROGEN 6 mg/dl (7-20); CALCIUM 8.5 mg/dl (8.4-10.2); CARBON DIOXIDE 26 mmol/L (21-31); CHLORIDE 108 mmol/L (97-110); CREATININE 0.53 mg/dl (0.61-1.24); Estimated GFR > 60 mL/min (>60); GLUCOSE 95 mg/dl (70-220); POTASSIUM 3.7 mmol/L (3.5-5.1); SODIUM 141 mmol/L (135-144)
[2018-10-17 19:25] LABS: AMPHETAMINE/METHAMPHETAMINE NEGATIVE (NEGATIVE); BARBITURATES NEGATIVE (NEGATIVE); BENZODIAZEPINES NEGATIVE (NEGATIVE); CANNABINOIDS NEGATIVE (NEGATIVE); COCAINE NEGATIVE (NEGATIVE); OPIATES NEGATIVE (NEGATIVE)
== END 2018-10-17 23:10 | disposition home or self-care (01) ==
LOC: E/R 23:10
DX: G40.909 Epilepsy, unspecified, not intractable, without status epilepticus (principal); E11.9 Type 2 diabetes mellitus without complications; R06.02 Shortness of breath
CPT/HCPCS: 36415; 70450; 71045; 80048; 80053; 80307; 81003; 82962; 84484; 85025; 85610; 93005; 96374; 99285-25